=== PATIENT | female | born 1965 | race Caucasian/White ===

== ENCOUNTER 2017-07-11 15:21 | Emergency (ER) | payer SELFPAY, OTHER | END 2017-07-11 18:30 | disposition left against medical advice (07) | LOC: FTE 15:21 | DX: Z53.21 Procedure and treatment not carried out due to patient leaving prior to being seen by health care provider (principal) ==

== ENCOUNTER 2017-07-12 07:53 | Emergency (ER) | payer OTHER | END 2017-07-12 10:50 | disposition home or self-care (01) | LOC: FTE 07:53 | DX: S01.112A Laceration without foreign body of left eyelid and periocular area, initial encounter (principal); W10.9XXA Fall (on) (from) unspecified stairs and steps, initial encounter; Y92.9 Unspecified place or not applicable | CPT/HCPCS: 99282; Z7502 ==